=== PATIENT | female | born 1955 | race Caucasian/White ===

== ENCOUNTER → 2025-04-12 | Outpatient (CLI) | payer MEDICARE ==
--- NOTE | 2025-04-12 07:53 | MM ---
Reason for Exam: Screening (asymptomatic). Last mammogram was performed 1 year(s) and 6 month(s) ago. Patient History: Menarche at age 12. Patient has no children. Postmenopausal. Other cancer, age 46. Currently using Estrogen, beginning at age 46 for 4 years. Progesterone, starting at age 46 for 4 years. Risk Values: Irena 5 year model risk: 1.9%. NCI Lifetime model risk: 5.6%. Prior Study Comparison: 10/02/2005 Bilateral Screening Mammogram, [facility]. 05/16/2008 Bilateral Screening Mammogram, [facility]. 06/12/2009 Bilateral Screening Mammogram, [facility]. 10/15/2021 Bilateral MG 3D screening mammo w/cad, Unknown. 10/17/2022 Bilateral MG 3D screening mammo w/cad, Unknown. 10/21/2023 Bilateral MG 3D screening mammo w/cad, Unknown. Tissue Density: The breasts are heterogeneously dense, which may obscure small masses. Findings: Analyzed By CAD. There is no suspicious group of microcalcifications or new suspicious mass in either breast. Overall Assessment: Negative, BI-RAD 1 Management: Screening Mammogram of both breasts in 1 year. . Patient should continue monthly self-breast exams. A clinical breast exam by your physician is recommended on an annual basis. This exam should not preclude additional follow-up of suspicious palpable abnormalities. Note on Irena scores and lifetime risk: 1. A Irena score greater than 3% is considered moderate risk. If this is the case, consider specialist referral to assess eligibility for a risk reducing agent. 2. If overall lifetime risk for the development of breast cancer is 20% or higher, the patient may qualify for future screening with alternating mammogram and breast MRI. [facility], , 04/12/2025 7:50 AM. Electronically signed and approved by: Armando Pa M.D. Radiologis
--- NOTE | 2025-04-12 12:16 | BD ---
EXAMINATION TYPE: Axial Bone Density DATE OF EXAM: 04/12/2025 CLINICAL HISTORY: 70 years old Female. ICD-10 CODE: Z78.0 MENOPAUSAL STATE , Additional History: Height: 65.5 Weight: 160.6 FRAX RISK QUESTIONS: Alcohol (3 or more units per day): no Family History (Parent hip fracture): no Glucocorticoids (More than 3mos): no (Ex: prednisone, prednisolone, methylprednisolone, dexamethasone, and hydrocortisone). History of Fracture in Adulthood: no Secondary Osteoporosis: 1. Type 1 Diabetes: no 2. Hyperthyroidism: no 3. Menopause before 45: no 4. Malnutrition: no 5. Chronic liver disease: no Rheumatoid Arthritis: no Current Tobacco Use: no RISK FACTORS HISTORY OF: Hip Fracture (Right/Left): no Spine Fracture: no History of Wrist Fracture: no Surgery to Spine/Hip(right/left)/Wrist (right/left): no MEDICATIONS: Thyroid Medications: no Osteoporosis Medications: no EXAM MEASUREMENTS: Bone mineral densitometry was performed using the [facility]. Bone mineral density as measured about the Lumbar spine is: ----- L1-L4(G/cm2): 0.921 T Score Values are as follows: ----- L1: -1.5 ----- L2: -3.0 ----- L3: -1.8 ----- L4: -2.5 ----- L1-L4: -2.2 Z Score Values are as follows: ----- L1: -0.1 ----- L2: -1.6 ----- L3: -0.4 ----- L4: -1.1 ----- L1-L4: -0.8 Baseline Study Bone mineral density about the R hip (g/cm2): 0.862 Bone mineral density about the L hip (g/cm2): 0.797 T Score values are as follows: -----R Neck: -1.3 -----L Neck: -1.6 -----R Total: -1.2 -----L Total: -1.7 Z Score values are as follows: -----R Neck: 0.2 -----L Neck: -0.1 -----R Total: 0.1 -----L Total: -0.4 Baseline Study FRAX%s: The graph provided illustrates a 10.2% chance for a major osteoporotic fx and a 1.5% chance f or the hips probability for fx in 10 years time. IMPRESSION: Osteopenia (T Score between -2.5 and -1). There is slightly increased risk of fracture and the patient may be considered for treatment. Re-Screen 2-5 years. NOTE: T-SCORE=SD OF THE YOUNG ADULT MEAN. [facility], , 04/12/2025 12:14 PM
== END | disposition home or self-care (01) ==
LOC: RADMAMWWP 07:18
PROVIDERS: ATTEND Family Medicine
DX: Z12.31 Encounter for screening mammogram for malignant neoplasm of breast (principal); R92.333 Mammographic heterogeneous density, bilateral breasts; M85.89 Other specified disorders of bone density and structure, multiple sites; Z78.0 Asymptomatic menopausal state
CPT/HCPCS: 77063; 77067; 77080